=== PATIENT | male | born 1960 | race Caucasian/White ===

== ENCOUNTER → 2020-05-03 | Outpatient (CLI) | payer BC ==
[~2020-05-03] MED LIST: ACCUPRIL40 MG PO; AFRIN120 MG PO; ASPIRIN81 MG PO; CRESTOR; CRESTOR10 MG PO; EFFIENT10 MG PO; FISH OIL500 M1 PO; FISHOIL; NATURAL VITA100 UNIT PO; NATURAL VITAMI500 MG; NORCO 5-325 TA1 EACH PO; TOPROL XL25 MG PO; VITAMIN D400 UNI1 PO; VITAMIN E400 UNI6; [UNRECOGNIZED DRUG - REMARK]
[2020-05-03 10:04] LABS: CHOLESTEROL 125 mg/dL (<200); HDL CHOLESTEROL 34 mg/dL (>40); LDL CHOLESTEROL 70 mg/dL (<100); TC:HDL 3.7 Ratio (Not establshd); TRIGLYCERIDE 109 mg/dL (<150); VLDL 22 mg/dL (<40)
[2020-05-03 10:05] LABS: SERUM ASSESSMENT Clear
== END ==
LOC: M.LAB 09:40
PROVIDERS: ATTEND Internal Medicine Cardiovascular Disease
DX: E78.2 Mixed hyperlipidemia (principal)

== ENCOUNTER → 2021-06-20 | Outpatient (CLI) | payer OTHER ==
[2021-06-20 09:47] LABS: CHOLESTEROL 112 mg/dL (<200); HDL CHOLESTEROL 36 mg/dL (>40); LDL CHOLESTEROL 56 mg/dL (<100); TC:HDL 3.1 Ratio (Not establshd); TRIGLYCERIDE 102 mg/dL (<150); VLDL 20 mg/dL (<40)
[2021-06-20 09:49] LABS: SERUM ASSESSMENT Clear
== END ==
LOC: M.LAB 09:07
PROVIDERS: ATTEND Internal Medicine Cardiovascular Disease
DX: E78.2 Mixed hyperlipidemia (principal)